=== PATIENT | male | born 2000 | race Two or more races ===

== ENCOUNTER 2018-08-13 23:41 | Emergency (ER) | payer SELFPAY ==
--- NOTE | 2018-08-13 23:49 | EDM.PDOCBH ---
ED HPI GENERAL MEDICAL PROBLEM - General Chief Complaint: Behavioral/[facility] Time Seen by Provider: 08/13/18 23:49 Source of Information: Reports: Patient, Police History Limitations: Reports: No Limitations - History of Present Illness INITIAL COMMENTS - FREE TEXT/NARRATIVE: 17-year-old male of [place] presents to the ED per police and [facility]. Police were called to have a [place] where he resides with his girlfriend and her roommate. This is because he had started self cutting on his right forearm on the volar aspect. Wellness checkup was asked for by the girlfriend. Paramedics and police identified that the nail had several superficial lacerations to his volar right forearm. He indicated that he was not feeling suicidal all will use feeling anxious. He later admitted to the police records clerk and myself that he basically did this behavior to get attention from his girlfriend. Patient states that he was on Effexor 37.5 mg daily for a month right out of medication about 2 weeks ago. He states after about a week he started to feel more anxious and started to feel more depressed and guilty about certain things in his life. He feels strongly this contributed to his self cutting behavior tonight. He staunchly denies any feelings of suicide or thinking that he would be better off or others would be better off if he was etc. He definitely has no plan to kill himself. Patient has a history of self cutting behavior dating back to age 9. Her scars on the volar aspect of his left forearm from self cutting and one on his left anterior thigh. At present he states he feels better less anxious after speaking with paramedics and police officers. He admits that he's been in psychiatric facilities at least 6 times in the past and doesn't find all that effective. He doesn't feel he needs psychiatric services at this time. He takes no other medications. He denies any substance abuse issues with alcohol or drugs and he' s not intoxicated at the time my exam. He is alert ,oriented and very cooperative. Patient states tetanus toxoid is up-to-date. Patient is currently on no medications. Onset: Today Onset Date: 08/13/18 Onset Time: 21:40 Duration: Hour(s):, Resolved Prior to Arrival Location: Reports: Other (Admits to self cutting behavior with a razor blade to the volar aspect of his right forearm.) Quality: Reports: Other (Numerous superficial lacerations to the volar aspect of his right forearm. Of note he is right-hand dominant.) Severity: Mild (None of the wounds are deep enough to require suture.) Improves with: Reports: None Worsens with: Reports: None Context: Reports: Other (States he became anxious and self absorbed tonight. He states he did this self cutting behavior in an effort to gain secondary effect from his girlfriend. She is the one who called the police.). Denies: Activity, Exercise, Lifting, Sick Contact, Trauma Associated Symptoms: Reports: No Other Symptoms. Denies: Confusion, Chest Pain , Cough, cough w sputum, Diaphoresis, Fever/Chills, Headaches, Loss of Appetite , Malaise, Nausea/Vomiting, Rash, Shortness of Breath, Syncope Treatments SUPERINTENDENT PIER: Reports: Other (see below) (None.) - Related Data Allergies Allergy/AdvReac Type Severity Reaction Status Date / Time No Known Allergies Allergy Verified 08/14/18 00:07 Home Meds: Home Meds Doxycycline [Vibramycin] 100 mg PO BID #20 cap 08/14/18 [Rx] Venlafaxine [Effexor XR 24 Hr] 37.5 mg PO DAILY #30 cap.er 08/14/18 [Rx] Past Medical History Psychiatric History: Reports: Anxiety, Depression, Psych Hospitalization(s) ( States he's been admitted probably 5 or 6 times in the past all and [place] is never found psychiatric admissions very helpful.), Other (See Below) ( He states he has been doing self cutting behaviors off and on since age 12.) Social & Family History - Tobacco Use Smoking Status *Q: Current Every Day Smoker Tobacco Use Within Last Twelve Months: Cigarettes (Smokes a pack per day.) - Caffeine Use Caffeine Use: Reports: Coffee, Energy Drinks - Alcohol Use Alcohol Use History: Yes - Living Situation & Occupation Living situation: Reports: with Significant Other (Hoping to get a job in the [place] area. 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 ) Occupation: Unemployed ED ROS GENERAL - Review of Systems Review Of Systems: See Below Constitutional: Denies: Fever, Chills, Malaise, Weakness, Fatigue, Decreased Appetite, Weight Loss HEENT: Reports: No Symptoms Respiratory: Reports: No Symptoms Cardiovascular: Reports: No Symptoms Endocrine: Reports: No Symptoms GI/Abdominal: Reports: No Symptoms : Reports: No Symptoms Musculoskeletal: Reports: Other (Facial lacerations the volar aspect of his right forearm) Skin: Reports: Other (Several healed laceration summoned quite deep to the volar aspect of his left forearm appreciated. He states he has a constant area of numbness in the distribution of the median nerve volarly recut deep enough to involve the nerve in the past. At present he has perhaps 20 superficial lacerations to the volar aspect of his right forearm all of them very superficial none of which will require laceration repair. None are actively bleeding.) Neurological: Reports: No Symptoms Psychiatric: Reports: Anxiety, Depression (Jesu positive anxiety problems with depression. Did feel much better while on Effexor but ran out of medication 2 weeks ago.), Mood Lability, Other (Occasional very vivid). Denies : Hallucinations, Suicidal Ideation Hematologic/Lymphatic: Reports: No Symptoms Immunologic: Reports: No Symptoms ED EXAM, BEHAVIORAL HEALTH - Physical Exam Exam: See Below Exam Limited By: No Limitations General Appearance: Alert, WD/WN, No Apparent Distress, Other (Very cooperative and oriented 3. No signs of ascending under the influence of any drug or alcohol.) Eye Exam: Bilateral Eye: Normal Inspection Throat/Mouth: Normal Inspection, Normal Lips, Normal Oropharynx Head: Atraumatic, Normocephalic Neck: Normal Inspection, Supple, Non-Tender, Full Range of Motion. No: Lymphadenopathy (L), Lymphadenopathy (R) Respiratory/Chest: No Respiratory Distress, Lungs Clear, Normal Breath Sounds, No Accessory Muscle Use, Chest Non-Tender Cardiovascular: Normal Peripheral Pulses, Regular Rate, Rhythm, No Edema, No Gallop, No Murmur, No Rub GI/Abdominal: Normal Bowel Sounds, Soft, Non-Tender, No Organomegaly, No Abnormal Bruit, No Mass, Pelvis Stable, Other Back Exam: Normal Inspection, Full Range of Motion. No: CVA Tenderness (L), CVA Tenderness (R) Extremities: Normal Range of Motion, No Pedal Edema, Other (As described above pounds perhaps 20 superficial linear lacerations from a razor blade to the volar aspect of his right forearm. All of these are very superficial none of which require sutures. Actively bleeding. Has numerous well-healed scars on the volar aspect of his left forearm some of which appear to have been quite deep and required suture repair in the past he has one area of superficial laceratio. himself cutting on the left lower leg anteriorly. Is well-healed) Neurological: Alert, Normal Mood/Affect, CN II-XII Intact, Normal Cognition, No Motor/Sensory Deficits, Oriented x 3 Psychiatric: Alert, Normal Affect, Normal Cognition, Normal Mood, Oriented. No : Depressed Mood, Flat Affect, Incoherent, Restless, Tearful, Disoriented, Inattentive, Non-Communicative, Poor Eye Contact, Withdrawn, Flight of Ideas, Homicidal Thoughts, Phobic, Yazidism Delusions, Suicidal Plan, Suicidal Thoughts, Tangential Thoughts, Auditory Hallucinations, Visual Hallucinations, Grandiose Thoughts, Pressured Speech, Paranoid Thoughts, Threatening Behavior Skin Exam: Warm, Dry, Normal color, Other (Numerous superficial linear lacerations to the volar aspect of his right forearm from cutting with a razor blade. Wraps 20s superficial lacerations 2-3 cm in length) COURSE, BEHAVIORAL HEALTH COMP - Course Vital Signs: Last Vital Signs Temp 37.1 C 08/13/18 23:48 Pulse 89 08/13/18 23:48 Resp 18 08/13/18 23:48 BP 160/84 H 08/13/18 23:48 Pulse Ox 98 08/13/18 23:48 Orders, Labs, Meds: Medications Discontinued Medications Generic Name Dose Route Start Last Admin Trade Name Freq PRN Reason Stop Dose Admin Venlafaxine HCl 37.5 mg 08/14/18 00:01 08/14/18 00:06 Effexor Xr PO 08/14/18 00:02 37.5 mg ONETIME ONE Administration Re-Assessment/Re-Exam: 17-year-old male of [place] ancestry presents to the ED at the request of [facility] and police officers. Patient states that he got intubated of a verbal dispute with his girlfriend whom he resides within [facility] and her roommate. He states he was feeling anxious and admits to self cutting on his volar aspect of his right forearm to get attention from his girlfriend. States he has no intent of suicidal ideation or 2 and his life. He does not feel that he would be better off he does not feel that others would be better off if he was . He has no plan of committing suicide. Patient doesn't use street drugs. Rarely uses alcohol. Smokes pack cigarettes a day. Currently unemployed and looking for work. On my assessment I phoned to be alert oriented and very cooperative. He is not under the influence of any drugs or alcohol. Examination was completely normal other than the superficial lacerations to the volar aspect of his right forearm which he self-inflicted with a razor blade earlier tonight. He recognizes that this was immature and that there may be better ways to get the attention of his girlfriend that he requires. He states he was doing very well on Effexor workup until he ran out of medication 2 weeks ago. He gone to been taking for a month. He recognizes significant improvement in his mood lability and feeling less anxious and less prone to wanting to self cut. He is willing to certainly go back on medication in fact very keen to do so. I will therefore place him on Effexor 37.5 mg extended release once daily 1 tablet was given in the ED and I wrote a prescription for the same medication to be used daily for the next 6 months. He has a pustule on his right lower abdominal wall for which I prescribed oxide cream 100 mg twice a day if the lesion gets larger or develops increasing signs of infection such as cellulitis. He otherwise will not fill this prescription wounds were cleansed and topical antibiotic applied and then wounds dressed. `s officer was willing to drive him back to [place] and the patient was therefore discharged into his care. advised strongly to return to the ED if he is feeling suicidal at any time. Departure - Departure Time of Disposition: 00:01 Disposition: Home, Self-Care 01 Condition: Fair Clinical Impression: Depressive disorder, Anxiety, Deliberate self-cutting - Discharge Information *PRESCRIPTION DRUG MONITORING PROGRAM REVIEWED*: Not Applicable *COPY OF PRESCRIPTION DRUG MONITORING REPORT IN PATIENT MAKENZIE: Not Applicable Prescriptions: Doxycycline [Vibramycin] 100 mg PO BID #20 cap Venlafaxine [Effexor XR 24 Hr] 37.5 mg PO DAILY #30 cap.er Forms: ED Department Discharge Additional Instructions: Evaluation the emergency room tonight in regards to delivered self cutting behavior involving your right forearm. As we discussed you did this purposely to gain some secondary intention from your girlfriend. At this time you do not express any suicidal ideation or feel the need for psychiatric evaluation. However it sounds like the Effexor that you were started on a month ago was working very well to bring anxiety under control which is just so purpose. It also brings depression symptoms under control. Since she been off over the last 2 weeks symptoms have reoccurred. Therefore think it's prudent to restart Effexor 37.5 mg extended release tablet once daily. First tablet provided to the ED david and I will write a prescription for medication to be taken on a daily basis for the next 6 months. After that she'll need follow-up with a primary care provider probe probably in [place] or here in [place] to refill medication. I also read wrote a prescription for doxycycline antibiotic to be taken twice daily if you develop further problems with pustules on the abdominal wall or spreading signs of infection such as increased redness and pain. You need to start this medication as it twice daily for the full 10 days. If you are feeling increasingly anxious or suicidal please return to the emergency room here in [place] at any time.
[2018-08-14] MEDS ORDERED: Venlafaxine 37.5 MG Cap.ER PO ONE (00:01)
== END 2018-08-14 00:10 | disposition home or self-care (01) ==
LOC: JD.ED 23:41
DX: S51.811A Laceration without foreign body of right forearm, initial encounter (principal); F32.9 Major depressive disorder, single episode, unspecified; F41.9 Anxiety disorder, unspecified; F17.210 Nicotine dependence, cigarettes, uncomplicated; Z79.899 Other long term (current) drug therapy; X78.9XXA Intentional self-harm by unspecified sharp object, initial encounter; Y92.89 Other specified places as the place of occurrence of the external cause
CPT/HCPCS: 99284; A9270; 99283